=== PATIENT | female | born 1955 | race Caucasian/White ===

== ENCOUNTER 2022-08-17 15:36 | Emergency (ER) | payer MEDICARE, SELFPAY ==
--- NOTE | ~2022-08-17 | XR_ITS ---
EXAMINATION: XR knee RT 3V DATE: 08/17/2022 16:23 INDICATION: Right knee pain and swelling. TECHNIQUE: 3 views of right knee were obtained. COMPARISON: None. FINDINGS: Bone alignment is normal. No fracture. There is mild tricompartmental osteoarthritis charac terized by tiny marginal osteophytes. No joint space narrowing. No knee joint effusion. IMPRESSION: 1. Mild right knee osteoarthritis. Reviewed, dictated and finalized at location E.
[2022-08-17 15:51] VITALS: BP 170/91; PULSE 70; RESP 18; TEMP 35.9; O2SAT 98
--- NOTE | 2022-08-17 16:10 | PC.NURSE ---
pt to xray via wheelchair at this time
[2022-08-17 17:19] VITALS: BP 146/85; PULSE 66; RESP 16; O2SAT 100
--- NOTE | 2022-08-17 17:20 | ED.EXTPRO ---
HPI - Extremity Problem General Chief complaint: Extremity Problem,Nontraumatic Stated complaint: knee pain Time Seen by Provider: 08/17/22 17:05 History of Present Illness HPI Narrative: 66-year-old female reports for evaluation of right knee pain x4 days. States the knee hurts in the medial joint line is worse with twisting motions, especially when she is trying to twist her knee to get out of the car. She went to a local urgent care yesterday, had x-rays that were negative and was advised to follow-up outpatient for an MRI. She was given a prescription for tramadol. Patient came today because the pain persisted. She denies known trauma or injury. She has been able to ambulate. She denies knee swelling, warmth, fever. Related Data Allergies Allergy/AdvReac Type Severity Reaction Status Date / Time No Known Allergies Allergy Verified 08/17/22 15:38 Review of Systems Review of Systems: CONSTITUTIONAL: Denies fever, chills EYES: Denies visual changes, redness, or discharge. ENT: Denies rhinorrhea, congestion, sore throat, or otalgia. CARDIOVASCULAR: Denies chest pain, palpitations, or edema. RESPIRATORY: Denies cough or dyspnea. GASTROINTESTINAL: Denies abdominal pain, nausea, vomiting, or diarrhea. GENITOURINARY: Denies dysuria or hematuria. SKIN: Denies rash or itching. MUSCULOSKELETAL: See HPI NEUROLOGIC: Denies headache, numbness, dizziness, or weakness. PSYCHIATRIC: Denies anxiety or depression. Exam Narrative: GENERAL: Well-appearing, in no acute distress. HEAD: Normocephalic NECK: Supple. CHEST: No respiratory distress. Clear to auscultation, no adventitious breath sounds. HEART: Regular rate and rhythm. No murmur heard. Normal peripheral pulses. EXTREMITIES: RLE: Right knee with point tenderness along the medial joint line. No edema, effusion, warmth. No tenderness to remainder of knee. No calf tenderness, no lower extremity edema. Negative anterior posterior drawer. No MCL or LCL joint laxity. Pain with twisting of the knee. DP pulse 2+. Cap refill less than 2. Sensation intact. SKIN: Warm, dry, no rash. NEURO: No focal deficits. Alert and oriented x3. PSYCH: Normal mood and affect. Course Vital Signs Vital signs: Vital Signs Temperature 96.7 F L 08/17/22 15:51 Pulse Rate 70 08/17/22 15:51 Respiratory Rate 18 08/17/22 15:51 Blood Pressure 170/91 H 08/17/22 15:51 Pulse Oximetry 98 08/17/22 15:51 Oxygen Delivery Room Air 08/17/22 15:51 Temperature 96.7 F L 08/17/22 15:51 Pulse Rate 70 08/17/22 15:51 Respiratory Rate 18 08/17/22 15:51 Blood Pressure 170/91 H 08/17/22 15:51 Pulse Oximetry 98 08/17/22 15:51 Oxygen Delivery Room Air 08/17/22 15:51 MDM - Extremity (Nontraumatic) MDM Narrative Medical decision making narrative: 66-year-old female reports for evaluation of right knee pain x4 days. Initial vitals reveal elevated blood pressure which later improved to 146/85, otherwise stable. She is afebrile. Exam reveals tenderness to medial joint line, pain with twisting of the knee. She is neurovascularly intact. No edema on exam, knee without warmth, septic knee unlikely. She is able to ambulate. X-rays without acute osseous abnormality, she does have mild OA. Imaging discussed with the patient. Pain likely secondary to arthritis versus meniscal injury. Orthopedic referral and Gerard bandage provided. Ibuprofen sent to pharmacy. Advised RICE, ibuprofen, close orthopedic follow-up for possible MRI. Strict ED return precautions discussed. She is agreeable to plan verbalized understanding. Discharged in stable condition. Discharge Plan Discharge Clinical Impression: Knee pain Qualifiers: Chronicity: acute Laterality: right Qualified Code(s): M25.561 - Pain in right knee Patient Disposition: Home, Self-Care Condition: Stable Instructions: Antibiotic Form, Knee Pain (ED) Additional Instructions: Your evaluated emergency departme
[2022-08-17] MEDS: IBUPROFEN 600 MG TABLET PO (17:52)
== END 2022-08-17 18:10 | disposition home or self-care (01) ==
LOC: ANHED 17:28
PROVIDERS: Emergency Provider Physician Assistant
DX: M25.561 Pain in right knee (principal); M17.11 Unilateral primary osteoarthritis, right knee
CPT/HCPCS: 73562; 99283; A9270